=== PATIENT | female | born 1970 | race Hispanic/Latino ===

== ENCOUNTER → 2022-05-19 | Outpatient (CLI) | payer OTHER | LOC: US 10:43 | PROVIDERS: ATTEND Family Medicine | DX: R07.9 Chest pain, unspecified (principal) | CPT/HCPCS: 76700 ==

== ENCOUNTER → 2022-05-22 | Outpatient (CLI) | payer OTHER | LOC: RAD 07:55 | PROVIDERS: ATTEND Family Medicine | DX: R07.9 Chest pain, unspecified (principal); M25.572 Pain in left ankle and joints of left foot | CPT/HCPCS: 71046 ==